=== PATIENT | female | born 1970 | race Caucasian/White ===

== ENCOUNTER 2018-01-06 13:32 | Inpatient (IN) | payer OTHER ==
[2018-01-06] MEDS ORDERED: INSULIN LISPRO 100 UNITS/ML VIAL SC SCH (13:45)
[2018-01-06] MEDS ORDERED: PIPERACILLIN SODIUM/TAZOBACTAM 3.375 GM in DEXTROSE 5 % IN WATER 100 ML IV SCH ×2 (13:45)
--- NOTE | 2018-01-06 14:17 | HP ---
Chief Complaint - Chief Complaint Date of Service: 01/06/18 Time of Service: 14:12 Chief Complaint: Pain and swelling in right medial thigh History of Present Illness: Pt. is 47yo WF, usually sees Dr. Lake, history of poorly controlled DM2 and MRSA, has had a small abscess on her right medial thigh x 4 days that worsened greatly on the day of admission, becoming enlarged, dark and necrotic appearing. She presented to our [facility], who had Dr. Denton see her, but thought this just a cellulitis and said she should be admitted for IV abx. Pt. does admit to significant pain, no F/C, has had high sugars lately, but no other sx. She usually has redundent tissue medial thighs, but this is significantly more swollen. Labs were drawn in clinic which showed elevated WBC, left shift, Hyperglycemia of 335, but most concerning was ESR of 92, the significant redness and significant smell. She was admitted for IV abx, CT to rule out possible gas gangrene/necrotizing fasciitis and to control her sugars. - Patient's Past Medical History Patient History - Medical: Diabetes Type 2, Hypothyroidism, Other - rosacea and occular MRSA Patient History - Cardiac/Respiratory: Asthma Patient History - Cancer: No Hx of Cancer Patient History - Surgical Procedures: T & A Patient History - Other: None - Family History Mother Family History - Medical: Diabetes Type 2 Family History - Cardiac/Respiratory: Coronary Heart Disease Family History - Cancer: No pertinent family hx Father Family History - Medical: , Diabetes Type 2 Family History - Cancer: Lymphoma Grandfather-Paternal Family History - Medical: , No pertinent hx Family History - Cardiac/Respiratory: No pertinent hx Family History - Cancer: Lymphoma Grandmother-Maternal Family History - Medical: , Diabetes Type 2 Family History - Cardiac/Respiratory: No pertinent hx Family History - Cancer: No pertinent family hx - Social History Abuse History: No History of abuse Psych History: No pertinent hx Does anyone smoke in the home?: No Smoking Status: Never smoker Have you smoked in the past 12 months: No Do you dip or chew tobacco: No Alcohol Use: none Drug Use: none - Immunizations Immunizations Up to Date: Yes Review Of Systems (GEN) - Review of Systems Generalized/Overall Review: Present: No Symptoms Reported. Absent: Chills, Fever, Malaise EENTM: Present: No Symptoms Reported Respiratory: Present: No Symptoms Reported Cardiac: Present: No Symptoms Reported Abdominal: Present: No Symptoms Reported Genitourinary: Present: No Symptoms Reported Musculoskeletal: Present: No Symptoms Reported Neurological: Present: Parasthesia Skin: Present: Lesions, Lumps, Other - redness, significant pain and warmth to right inner thigh. Endocrine: Present: No Symptoms Reported Allergies/Adverse Reactions: Allergies Allergy/AdvReac Type Severity Reaction Status Date / Time No Known Drug Allergies Allergy Verified 01/06/18 14:42 Home Medications: HOME MEDICATIONS Doxycycline Hyclate [Vibratab] 100 mg PO Q48H 01/06/18 [Last Taken Unknown] Glimepiride [Amaryl] 4 mg PO BID@0700,1700 01/06/18 [Last Taken Unknown] Levothyroxine Sodium [Synthroid] 254 mcg PO DAILY 01/06/18 [Last Taken Unknown] Montelukast Sodium [Singulair] 10 mg PO DAILY 01/06/18 [Last Taken Unknown] Multivitamins [Multivitamin Delon] 1 cap PO DAILY 01/06/18 [Last Taken Unknown] [place]-3S/Dha/Epa/Fish Oil [Fish Oil 1,200 mg Softgel] 1 each PO DAILY 01/06/18 [ Last Taken Unknown] metFORMIN HCL [Metformin HCl ER] 2,000 mg PO DAILY 01/06/18 [Last Taken Unknown] Exam - Exam Vital Signs: Temp 36.8 HR 115 BP 142/88 Pain 5/10 - 9/10 when moving. RR 18 97% RA Constitutional: Present: Alert, Oriented x3, Cooperative, Mild distress, Moderate distress, Overweight ENT Exam: Present: hearing grossly normal Eye Exam: bilateral eye: normal inspection, PERRL, EOMI Extremity: Present: other - significant swelling, tumor (10cm area - firm, non- fluctuant), calor, rubor and dolor of the right medial posterior thigh with 4cm dark necrotic area. Pt. winces in pain when being touched. No purulent drainage, but does bleed. Neurologic: Present: normal mood/affect, oriented x 3 Appearance: Present: appropriate appearance, appropriate insight, neat Eye contact: Present: cooperative, good eye contact, normal speech Thoughts: Present: normal thought pattern, no apparent hallucination Assessment/Plan - Assessment/Plan (1) Cellulitis and abscess of right leg Assessment: concern for possible significant infection - early nec or gas gangrene so will do CT with contrast of leg. Dr. Denton has already seen her, so will keep her NPO until results are back in case she may need to go to surgery. Cultures of wound and blood have been done and IV vanc and zosyn have been ordered stat. Problem: Acute (2) Diabetes Assessment: sugars currently running high. will hold metformin due to IV contrast for CT. will do consistent carb diet when taking po and SSI - moderate dose. accuchecks achs. Problem: Chronic Qualifiers: Diabetes mellitus type: type 2 Diabetes mellitus complication status: without complication Diabetes mellitus usp insulin use: without usp use Qualified Code(s): E11.9 - Type 2 diabetes mellitus without complications (3) Hyperglycemia due to type 2 diabetes mellitus Assessment: will do SSI for now. Problem: Acute Qualifiers: Diabetes mellitus usp insulin use: without usp use Qualified Code(s): E11.65 - Type 2 diabetes mellitus with hyperglycemia (4) History of MRSA infection Assessment: contact precautions. start vanco awaiting cultures. retest nares for MRSA. Problem: Chronic (5) Discharge planning issues Assessment: anticipate pt. being her a minimum of 2 midnights while we await cultures and response to abx. If surgery needed this could extend into several days to a week. Problem: Acute
[2018-01-06] MEDS: ENOXAPARIN SODIUM 40 MG/0.4 ML SYRG SC SCH (15:57)
[2018-01-06] MEDS: PIPERACILLIN SODIUM/TAZOBACTAM 3.375 GM in DEXTROSE 5 % IN WATER 100 ML IV SCH ×2 (15:57)
[2018-01-06] MEDS: VANCOMYCIN HCL 1 GM in DEXTROSE 5 % IN WATER 250 ML IV SCH ×2 (15:58)
[2018-01-06] MEDS: INSULIN LISPRO 100 UNITS/ML VIAL SC SCH ×2 (17:25→21:01)
[2018-01-06] MEDS: HYDROcodone/ACETAMINOPHEN 1 EACH TABLET PO PRN (21:01)
[2018-01-07] MEDS: PIPERACILLIN SODIUM/TAZOBACTAM 3.375 GM in DEXTROSE 5 % IN WATER 100 ML IV SCH ×8 (00:23→22:11)
[2018-01-07] MEDS: HYDROcodone/ACETAMINOPHEN 1 EACH TABLET PO PRN ×3 (02:34→16:15)
[2018-01-07] MEDS: VANCOMYCIN HCL 1 GM in DEXTROSE 5 % IN WATER 250 ML IV SCH ×4 (02:36→14:26)
--- NOTE | 2018-01-07 05:33 | PN ---
Subjective - Date and Time Seen Date: 01/07/18 Time: 06:10 Subjective Narrative: Pt examined this am. Denies pain on thigh except with movement. Corder is controlling the pain well. The erythema on RT thigh is slowly improving. No other acute events. Objective - Vitals Vitals: Last Vital Signs Temp 36.3 C L 01/07/18 02:49 Pulse 97 01/07/18 02:49 Resp 18 01/07/18 02:49 BP 144/62 01/07/18 02:49 Pulse Ox 99 01/07/18 02:49 - Exam Constitutional: Present: Alert, Oriented x3, Cooperative, No distress ENT Exam: Present: normal ENT inspection Neck: Present: non-tender, full range of motion, supple Breasts: Present: Exam deferred Respiratory: Present: lungs clear, No rales, No wheezing Cardiovascular/Chest: Present: normal peripheral pulses, regular rate, rhythm, no chest tenderness Abdomen: Present: Normal bowel sounds, soft, nontender, obese /Rectal: Present: Exam deferred Extremity: Present: normal range of motion. Absent: lower extremity edema Skin Exam: Present: other - Erythema on RT inner thigh. Neurologic: Present: no motor/sensory deficits, alert, oriented x 3 Appearance: Present: appropriate appearance, appropriate insight Eye contact: Present: cooperative, good eye contact, normal speech Thoughts: Present: normal thought pattern, no apparent hallucination Assessment/Plan - Problems/Diagnosis (1) Cellulitis and abscess of right leg Problem: Acute Narrative: Pt presented with abscess of RT medial thigh and significant redness and odour. CT of the RT thigh showed focal cellulitis and mass like deposition of adipose tissue, but there was no evidence of gas gangrene or fluid collection. Blood and wound culture are pending. She has hx of MRSA. Will cover with Zosyn and Vancomycin for now until culture results. Monitor CBC in am. (2) Diabetes Problem: Chronic Qualifiers: Diabetes mellitus type: type 2 Diabetes mellitus complication status: without complication Diabetes mellitus terminal gauger insulin use: without correction use Qualified Code(s): E11.9 - Type 2 diabetes mellitus without complications Narrative: Blood sugars are running high. Is on SSI. Metformin on hold due to CT scan with contrast use. May need to consider adding basal insulin. (3) Discharge planning issues Problem: Acute (4) Hyperglycemia due to type 2 diabetes mellitus Problem: Acute Qualifiers: Diabetes mellitus correction insulin use: without correction use Qualified Code(s): E11.65 - Type 2 diabetes mellitus with hyperglycemia (5) History of MRSA infection Problem: Chronic
[2018-01-07 05:44] LABS: Hematocrit 40.6 % (37.0-47.0); Hemoglobin 13.5 gm/dL (12.5-16.0); Mean Cell Volume 90.4 fl (78-100); Mean Corpuscular Hemoglobin 30.1 pg (27-31); Mean Corpuscular Hgb Conc 33.3 g/dl (32-36); Mean Platelet Volume 11.3 fl (6.0-9.5); Neutrophil % 79.4 % (42-75.0); Platelet Count 187 K/mm3 (150-450); Red Blood Count 4.49 M/mm3 (4.2-5.4)
[2018-01-07] MEDS ORDERED: LEVOTHYROXINE SODIUM 137 MCG TABLET PO SCH (07:00)
[2018-01-07] MEDS: LEVOTHYROXINE SODIUM 137 MCG TABLET PO SCH (07:30)
[2018-01-07] MEDS: INSULIN LISPRO 100 UNITS/ML VIAL SC SCH ×4 (07:31→20:44)
[2018-01-07] MEDS: MONTELUKAST SODIUM 10 MG TABLET PO SCH (08:59)
[2018-01-07] MEDS: MORPHINE SULFATE 4 MG/ML SYRG IV PRN ×2 (14:27→18:48)
[2018-01-07] MEDS: ENOXAPARIN SODIUM 40 MG/0.4 ML SYRG SC SCH (14:41)
--- NOTE | 2018-01-07 16:15 | CONS ---
[facility] - General Date of Service: 01/07/18 Narrative: This patient presented yesterday to the walk-in clinic with an infected right thigh MLL. I was asked to take a look at it over in the clinic and thought that this represented a hemorrhagic cellulitis without abscess but recommended admission for IV antibiotics, glycemic control, etc. She was admitted and started on Zosyn/Vanco. A CT confirms cellulitis without abscess or necrotizing fascitis. Today she is having ongoing pain. She denies fevers or chills. Source: patient, RN/MD, old records Exam Limitations: no limitations - History of Present Illness Allergies/Adverse Reactions: Allergies No Known Drug Allergies Allergy (Verified 01/06/18 14:42) Home Medications: Home Medications Medication Instructions Recorded Last Taken Doxycycline Hyclate [Vibratab] 100 mg PO Q48H 01/06/18 Unknown Glimepiride [Amaryl] 4 mg PO BID@0700,1700 01/06/18 Unknown Levothyroxine Sodium [Synthroid] 254 mcg PO DAILY 01/06/18 Unknown Montelukast Sodium [Singulair] 10 mg PO DAILY 01/06/18 Unknown Multivitamins [Multivitamin Delon] 1 cap PO DAILY 01/06/18 Unknown [place]-3S/Dha/Epa/Fish Oil [Fish 1 each PO DAILY 01/06/18 Unknown Oil 1,200 mg Softgel] metFORMIN HCL [Metformin HCl ER] 2,000 mg PO DAILY 01/06/18 Unknown - Patient's Past Medical History Patient History - Medical: Diabetes Type 2, Hypothyroidism, Other - rosacea and occular MRSA Patient History - Cardiac/Respiratory: Asthma Patient History - Cancer: No Hx of Cancer Patient History - Surgical Procedures: T & A Patient History - Other: None LMP (females 10-50): 1 month - Family History Mother Family History - Medical: Diabetes Type 2 Family History - Cardiac/Respiratory: Coronary Heart Disease Family History - Cancer: No pertinent family hx Father Family History - Medical: , Diabetes Type 2 Family History - Cancer: Lymphoma Grandfather-Paternal Family History - Medical: , No pertinent hx Family History - Cardiac/Respiratory: No pertinent hx Family History - Cancer: Lymphoma Grandmother-Maternal Family History - Medical: , Diabetes Type 2 Family History - Cardiac/Respiratory: No pertinent hx Family History - Cancer: No pertinent family hx - Social History Living Situations: alone Abuse History: No History of abuse Psych History: No pertinent hx Does anyone smoke in the home?: No Smoking Status: Never smoker Have you smoked in the past 12 months: No Do you dip or chew tobacco: No Patient requests Smoking Cessation Consult: No Initiate information on Smoking Cessation: No Alcohol Use: none Drug Use: none - Immunizations Immunizations Up to Date: Yes Medications - Medications Current Medications: Current Medications Acetaminophen/Hydrocodone Bitart ([place] 5-325) 1 each PO Q4H PRN PRN Reason: Moderate Pain (pain scale 4-6) Stop: 02/05/18 20:16 Last Admin: 01/07/18 10:20 Dose: 1 each Enoxaparin Sodium (Lovenox) 40 mg SC Q24H [facility] Stop: 02/05/18 15:01 Last Admin: 01/07/18 14:41 Dose: 40 mg Vancomycin HCl 1 gm/ Dextrose/ (Water) 250 mls @ 140 mls/hr IV Q12H RODRIGO PRN Reason: Protocol Stop: 02/05/18 15:01 Last Admin: 01/07/18 14:26 Dose: 140 mls/hr Piperacillin Sod/Tazobactam (Sod 3.375 gm/ Dextrose/Water) 100 mls @ 25 mls/hr IV Q8H RODRIGO PRN Reason: Protocol Stop: 02/05/18 15:01 Last Admin: 01/07/18 14:39 Dose: 25 mls/hr Insulin Human Lispro (Humalog) 0 units SC ACHSINS RODRIGO PRN Reason: Protocol Stop: 02/05/18 17:01 Last Admin: 01/07/18 11:42 Dose: 17 units Levothyroxine Sodium (Synthroid) 274 mcg PO QDAC [facility] Stop: 02/06/18 07:31 Last Admin: 01/07/18 07:30 Dose: 274 mcg Montelukast Sodium (Singulair) 10 mg PO DAILY [facility] Stop: 02/06/18 09:01 Last Admin: 01/07/18 08:59 Dose: 10 mg Morphine Sulfate (Morphine Sulfate) 2 mg IV Q4H PRN PRN Reason: Severe Pain (pain scale 7-10) Stop: 02/05/18 13:54 Last Admin: 01/07/18 14:27 Dose: 2 mg Physical Examination - Exam Narrative: She has a large pedunculated mass of the upper inner right thigh with peau d' orange consistent with MLL (massive localized lymphedema). It is involed with cellulitis that has improved from yesterday. There is hemorrhagic skin 8x8cm with some surround scalded skin syndrome. It is draining hemorrhagic serous fluid. Vital Signs: Vital Signs - Last Taken Temp 37 C 01/07/18 14:00 Pulse 91 01/07/18 14:00 Resp 18 01/07/18 14:00 BP 127/66 01/07/18 14:00 Pulse Ox 95 01/07/18 14:00 O2 Oxygen Delivery Method Room Air - Results and Findings: Lab/Microbiology results last 24 hrs: Abnormal/Pending Laboratory Last 24 HRS 01/07/18 01/07/18 05:40 05:40 MPV 11.3 H Neutrophils % 79.4 H Lymphocytes % 7.8 L Eosinophils % 4.8 H Neutrophils # 8.0 H Lymphocytes # 0.8 L ESR 89 H Culture 01/06/18 14:14 Blood Culture - Preliminary Blood NO GROWTH 24 HOURS 01/06/18 14:15 Wound Culture - Preliminary Thigh - Right Ruling Out Pathogen 01/06/18 Unknown - Final Nares MRSA Negative - Assessments/Findings (1) MLL (Massive Localized Lymphedema) Diagnosis(s): This polypoid mass has become secondarily infected. Undoubtedly began as an erysipelas as is so common in chronic lymphedema. The infection appears to be responding nicely. No surgical intervention indicated at this point. At some point down the road she may want to consider excision of this mass as these are known to degenerate into angiosarcomas. She states that this mass currently does not interfere with her gait. Problem: Acute
[2018-01-08] MEDS: MORPHINE SULFATE 4 MG/ML SYRG IV PRN ×3 (00:56→11:28)
[2018-01-08] MEDS: VANCOMYCIN HCL 1 GM in DEXTROSE 5 % IN WATER 250 ML IV SCH ×4 (02:24→15:09)
[2018-01-08] MEDS: ONDANSETRON HCL/PF 2 MG/ML VIAL IV PRN (02:44)
--- NOTE | 2018-01-08 05:17 | PN ---
Subjective - Date and Time Seen Date: 01/08/18 Time: 06:04 Subjective Narrative: Pt seen this am. Got nauseated over the night and Zofran provided relief. She thinks it's due to acid reflux from spicy dinner.The redness on RT thigh improving but is draining more. No other acute events overnight. Objective - Vitals Vitals: Last Vital Signs Temp 36.5 C 01/08/18 02:23 Pulse 88 01/08/18 02:23 Resp 20 01/08/18 02:23 BP 143/71 01/08/18 02:23 Pulse Ox 95 01/08/18 02:23 - Abnormal Lab Findings Abnormal Lab Findings: Abnormal Lab Results 01/07/18 01/07/18 Range/Units 05:40 05:40 MPV 11.3 H (6.0-9.5) fl Neutrophils % 79.4 H (42-75.0) % Lymphocytes % 7.8 L (20-51) % Eosinophils % 4.8 H (0.0-3.0) % Neutrophils # 8.0 H (1.3-6.0) K/mm3 Lymphocytes # 0.8 L (1.5-3.5) k/mm3 ESR 89 H (0-15) mm/hr - Exam Constitutional: Present: Alert, Oriented x3, Cooperative, No distress ENT Exam: Present: normal ENT inspection Neck: Present: non-tender, full range of motion, supple Breasts: Present: Exam deferred Respiratory: Present: chest non-tender, lungs clear Cardiovascular/Chest: Present: normal peripheral pulses, regular rate, rhythm, no chest tenderness Abdomen: Present: Normal bowel sounds, soft, nontender, obese /Rectal: Present: Exam deferred Extremity: Present: normal range of motion, non-tender, normal inspection Skin Exam: Present: other - RT inner thigh Neurologic: Present: no motor/sensory deficits, alert, normal mood/affect Appearance: Present: appropriate appearance, appropriate insight Eye contact: Present: cooperative, good eye contact, normal speech Thoughts: Present: normal thought pattern, no apparent hallucination Assessment/Plan - Problems/Diagnosis (1) Cellulitis and abscess of right leg Problem: Acute Narrative: Pt presented with abscess of RT medial thigh and significant redness and odour. CT of the RT thigh showed focal cellulitis and mass like deposition of adipose tissue, but there was no evidence of gas gangrene or fluid collection. Blood and wound culture are pending. She has hx of MRSA. Will cover with Zosyn and Vancomycin for now until culture results. Monitor CBC in am. (2) MLL (Massive Localized Lymphedema) Problem: Acute Narrative: Seen and evaluated by Dr. Junior for MLL. He does not believe surgical intervention is necessary at this time, but could need excision of the mass at a later time due to the angiosarcoma that can be the result. Will continue with Ax as planned. (3) Diabetes Problem: Chronic Qualifiers: Diabetes mellitus type: type 2 Diabetes mellitus complication status: without complication Diabetes mellitus nursing home insulin use: without nursing home use Qualified Code(s): E11.9 - Type 2 diabetes mellitus without complications Narrative: Blood sugars are running high. Is on SSI. Metformin on hold due to CT scan with contrast use. May need to consider adding basal insulin. (4) Discharge planning issues Problem: Acute (5) Hyperglycemia due to type 2 diabetes mellitus Problem: Acute Qualifiers: Diabetes mellitus psychologist engineering insulin use: without nursing home use Qualified Code(s): E11.65 - Type 2 diabetes mellitus with hyperglycemia (6) History of MRSA infection Problem: Chronic
[2018-01-08] MEDS: INSULIN GLARGINE,HUM.REC.ANLOG 100 UNITS/ML VIAL SC SCH ×2 (06:18→08:51)
[2018-01-08] MEDS: LEVOTHYROXINE SODIUM 137 MCG TABLET PO SCH (06:46)
[2018-01-08] MEDS: PIPERACILLIN SODIUM/TAZOBACTAM 3.375 GM in DEXTROSE 5 % IN WATER 100 ML IV SCH ×6 (06:47→23:34)
[2018-01-08] MEDS: INSULIN LISPRO 100 UNITS/ML VIAL SC SCH ×4 (06:52→22:25)
[2018-01-08] MEDS: FAMOTIDINE 20 MG TABLET PO SCH ×2 (08:43→22:27)
[2018-01-08] MEDS: MONTELUKAST SODIUM 10 MG TABLET PO SCH (08:43)
[2018-01-08] MEDS ORDERED: INSULIN GLARGINE,HUM.REC.ANLOG 100 UNITS/ML VIAL SC SCH (09:00)
[2018-01-08] MEDS ORDERED: VANCOMYCIN HCL LEVEL XX ONE (14:30)
[2018-01-08] MEDS: HYDROcodone/ACETAMINOPHEN 1 EACH TABLET PO PRN ×3 (15:09→23:44)
[2018-01-08] MEDS: ENOXAPARIN SODIUM 40 MG/0.4 ML SYRG SC SCH (15:10)
--- NOTE | 2018-01-08 17:04 | PN ---
Subjective - Date and Time Seen Date: 01/08/18 Time: 16:59 Subjective Narrative: FU Infected MLL right thigh No new c/o Objective - Vitals Vitals: Last Vital Signs Temp 36.4 C L 01/08/18 14:37 Pulse 94 01/08/18 14:37 Resp 16 01/08/18 14:37 BP 155/69 01/08/18 14:37 Pulse Ox 93 01/08/18 14:37 - Abnormal Lab Findings Abnormal Lab Findings: Abnormal Lab Results 01/08/18 Range/Units 14:27 Vancomycin Trough 7.3 L (10.0-20.0) mcg/mL - Exam Exam Narrative: Erythema is stable. Area of hemorrhagic infection looks a little bit better. This tissue may still be viable. Ongoing serosanguinous drainage. Growing strep from wound. Assessment/Plan - Problems/Diagnosis (1) MLL (Massive Localized Lymphedema) Problem: Acute Narrative: Appears stable. Agree with choices of PO Abx. No debridement indicated right now.
[2018-01-08 20:33] LABS: BUN/Creatinine Ratio 10.8 (9.0-21.6)
[2018-01-09] MEDS ORDERED: VANCOMYCIN HCL 1.25 GM in DEXTROSE 5 % IN WATER 250 ML IV SCH ×2 (03:02)
[2018-01-09] MEDS: HYDROcodone/ACETAMINOPHEN 1 EACH TABLET PO PRN ×4 (03:46→18:43)
[2018-01-09 05:45] LABS: Hematocrit 40.1 % (37.0-47.0); Hemoglobin 13.3 gm/dL (12.5-16.0); Mean Cell Volume 91.6 fl (78-100); Mean Corpuscular Hemoglobin 30.4 pg (27-31); Mean Corpuscular Hgb Conc 33.2 g/dl (32-36); Mean Platelet Volume 11.3 fl (6.0-9.5); Neutrophil # 4.7 K/mm3 (1.3-6.0); Neutrophil % 59.3 % (42-75.0); Platelet Count 192 K/mm3 (150-450); Red Blood Count 4.38 M/mm3 (4.2-5.4)
[2018-01-09] MEDS: PIPERACILLIN SODIUM/TAZOBACTAM 3.375 GM in DEXTROSE 5 % IN WATER 100 ML IV SCH ×2 (06:47)
[2018-01-09] MEDS: LEVOTHYROXINE SODIUM 137 MCG TABLET PO SCH (06:47)
[2018-01-09] MEDS: INSULIN LISPRO 100 UNITS/ML VIAL SC SCH ×4 (06:48→20:47)
[2018-01-09] MEDS: ONDANSETRON HCL/PF 2 MG/ML VIAL IV PRN ×2 (07:58→13:23)
--- NOTE | 2018-01-09 08:00 | PN ---
Subjective - Date and Time Seen Date: 01/09/18 Time: 07:54 Subjective Narrative: Pt. states the pain is slightly worse this am as she rolled over in bed last night and seemed to "squeeze" the area. otherwise she has no complaints. Objective - Review of Systems Generalized/Overall Review: Reports: No Symptoms Reported EENTM: Reports: No Symptoms Reported Respiratory: Reports: No Symptoms Reported Cardiac: Reports: No Symptoms Reported Abdominal: Reports: No Symptoms Reported Genitourinary Symptoms: Reports: No Symptoms Reported Musculoskeletal Complaints: Reports: No Symptoms Reported Neurological: Reports: No Symptoms Reported Skin: Reports: Lumps, Other - pain around infection. continues to drain bloody discharge. Endocrine: Reports: No Symptoms Reported - Vitals Vitals: Last Vital Signs Temp 36.4 C L 01/09/18 07:44 Pulse 87 01/09/18 07:44 Resp 16 01/09/18 07:44 BP 149/75 01/09/18 07:44 Pulse Ox 96 01/09/18 07:44 - Abnormal Lab Findings Abnormal Lab Findings: Abnormal Lab Results 01/08/18 01/09/18 01/09/18 Range/Units 14:27 05:40 05:40 MPV 11.3 H (6.0-9.5) fl Monocytes % 12.6 H (0.0-9) % Eosinophils % 4.5 H (0.0-3.0) % C-Reactive Prot, Quant 22.0 H (0.0-0.9) mg/dL Vancomycin Trough 7.3 L (10.0-20.0) mcg/mL - Exam Constitutional: Present: Alert, Oriented x3, Cooperative, Morbidly obese ENT Exam: Present: hearing grossly normal Neck: Present: supple Respiratory: Present: no respiratory distress Skin Exam: Present: other - erythema looks expanded beyond the demarkation, still with a great deal of warmth and tenderness to the area, with large dark hemarrhagic area posteriorly. Neurologic: Present: normal mood/affect, oriented x 3 Appearance: Present: appropriate appearance, appropriate insight, neat Eye contact: Present: cooperative, good eye contact, normal speech Thoughts: Present: normal thought pattern, no apparent hallucination Assessment/Plan - Problems/Diagnosis (1) Cellulitis and abscess of right leg Problem: Acute Narrative: culture grew out Group B strep, sensitive to levaquin so will change her over to PO levaquin and see how she does overnight. If area erythema improves, can discharge her on PO levaquin tomorrow. (2) Diabetes Problem: Chronic Qualifiers: Diabetes mellitus type: type 2 Diabetes mellitus complication status: without complication Diabetes mellitus intermodal truck driver insulin use: without skilled nursing use Qualified Code(s): E11.9 - Type 2 diabetes mellitus without complications Narrative: sugars still running high. will recheck Cr and restart her metformin to see if this helps. (3) Hyperglycemia due to type 2 diabetes mellitus Problem: Acute Qualifiers: Diabetes mellitus intermodal truck driver insulin use: without intermodal truck driver use Qualified Code(s): E11.65 - Type 2 diabetes mellitus with hyperglycemia (4) History of MRSA infection Problem: Chronic (5) Discharge planning issues Problem: Acute Narrative: hopefully can discharge home tomorrow.
[2018-01-09] MEDS: FAMOTIDINE 20 MG TABLET PO SCH ×2 (08:26→20:59)
[2018-01-09] MEDS: INSULIN GLARGINE,HUM.REC.ANLOG 100 UNITS/ML VIAL SC SCH (08:27)
[2018-01-09] MEDS: MONTELUKAST SODIUM 10 MG TABLET PO SCH (08:27)
[2018-01-09] MEDS: LEVOFLOXACIN 750 MG TABLET PO SCH (10:35)
[2018-01-09] MEDS: MORPHINE SULFATE 4 MG/ML SYRG IV PRN (11:08)
[2018-01-09] MEDS: ENOXAPARIN SODIUM 40 MG/0.4 ML SYRG SC SCH (14:25)
--- NOTE | 2018-01-09 14:31 | PN ---
Subjective - Date and Time Seen Date: 01/09/18 Time: 14:26 Subjective Narrative: FU Infected MLL right thigh Patient reports increasing drainage Objective - Vitals Vitals: Last Vital Signs Temp 36.6 C 01/09/18 11:00 Pulse 94 01/09/18 11:00 Resp 18 01/09/18 11:00 BP 152/72 01/09/18 11:00 Pulse Ox 98 01/09/18 11:00 - Abnormal Lab Findings Abnormal Lab Findings: Abnormal Lab Results 01/08/18 01/09/18 01/09/18 Range/Units 14:27 05:40 05:40 MPV 11.3 H (6.0-9.5) fl Monocytes % 12.6 H (0.0-9) % Eosinophils % 4.5 H (0.0-3.0) % C-Reactive Prot, Quant 22.0 H (0.0-0.9) mg/dL Vancomycin Trough 7.3 L (10.0-20.0) mcg/mL - Exam Exam Narrative: A portion of the hemorrhagic skin has liquified posteriorly and is no longer viable. Assessment/Plan - Problems/Diagnosis (1) MLL (Massive Localized Lymphedema) Problem: Acute Narrative: Plan debridement tomorrow under [facility]. Risks and benefits reviewed. She seems to understand, asks appropriate questions and desires to proceed.
[2018-01-10] MEDS ORDERED: ALPRAZolam 0.5 MG TABLET PO ONE (02:00)
[2018-01-10] MEDS: MORPHINE SULFATE 4 MG/ML SYRG IV PRN ×4 (07:00→20:44)
--- NOTE | 2018-01-10 07:04 | PN ---
Subjective - Date and Time Seen Date: 01/10/18 Time: 06:56 Subjective Narrative: complaint of thigh/infection site pain this am, but she was just up moving around. She is sad today due to pending surgery and anniversary date of losing her father. She has no other complaints and does not request or need anything new, per her. She did wonder about a tetanus shot as it's been since 08 that she's had one. Objective - Review of Systems Generalized/Overall Review: Reports: No Symptoms Reported EENTM: Reports: No Symptoms Reported Respiratory: Reports: No Symptoms Reported Cardiac: Reports: No Symptoms Reported Abdominal: Reports: No Symptoms Reported Genitourinary Symptoms: Reports: No Symptoms Reported Musculoskeletal Complaints: Reports: No Symptoms Reported Neurological: Reports: Depressed Skin: Reports: Lumps, Other - pain, drainage of right thigh cellulits Endocrine: Reports: No Symptoms Reported - Vitals Vitals: Last Vital Signs Temp 36.6 C 01/10/18 01:49 Pulse 91 01/10/18 01:49 Resp 18 01/10/18 01:49 BP 136/59 01/10/18 01:49 Pulse Ox 95 01/10/18 01:49 - Exam Constitutional: Present: Alert, Oriented x3, Mild distress, Obese ENT Exam: Present: hearing grossly normal Neck: Present: supple Respiratory: Present: lungs clear, normal breath sounds Cardiovascular/Chest: Present: regular rate, rhythm, no murmur Abdomen: Present: Normal bowel sounds, soft, nontender, nondistended, no hepatospenomegaly, obese Extremity: Present: no calf tenderness Skin Exam: Present: other - redness is not reduced this am. dark, hemorrhagic area is slightly larger, still draining serosanginous material. Odor is better after she showered. Neurologic: Present: normal mood/affect, oriented x 3, depressed affect Appearance: Present: appropriate appearance, appropriate insight, neat, no memory impairment Eye contact: Present: cooperative, good eye contact, normal speech, other - tearful this am, though fights crying. Thoughts: Present: normal thought pattern, no apparent hallucination Assessment/Plan - Problems/Diagnosis (1) Cellulitis and abscess of right leg Problem: Acute Narrative: just not progressing very rapidly. Plan is for debridement of the necrotic material posterior thigh by Dr. Bertin masters with the thought that this should expedite the healing process. will continue levaquin for now. (2) Diabetes Problem: Chronic Qualifiers: Diabetes mellitus type: type 2 Diabetes mellitus complication status: without complication Diabetes mellitus penitentiary insulin use: without meterman use Qualified Code(s): E11.9 - Type 2 diabetes mellitus without complications Narrative: sugars are improved. will continue diet, SSI, metformin. BP's have been slightly high, but she says she has been very stressed by all this. D/w consideration of low dose lisinopril if BP's remain high. (3) Hyperglycemia due to type 2 diabetes mellitus Problem: Acute Qualifiers: Diabetes mellitus penitentiary insulin use: without meterman use Qualified Code(s): E11.65 - Type 2 diabetes mellitus with hyperglycemia (4) History of MRSA infection Problem: Chronic Narrative: screening and wound cx are negative. (5) Discharge planning issues Problem: Acute Narrative: anticipate a protracted course, though hopefully the surgery will expedite her discharge and she can continue PO levaquin and be followed by our wound clinic outpt.
[2018-01-10] MEDS: INSULIN LISPRO 100 UNITS/ML VIAL SC SCH ×4 (07:06→21:04)
[2018-01-10] MEDS: LEVOTHYROXINE SODIUM 137 MCG TABLET PO SCH (07:07)
[2018-01-10] MEDS: FAMOTIDINE 20 MG TABLET PO SCH ×2 (09:14→21:03)
[2018-01-10] MEDS: MONTELUKAST SODIUM 10 MG TABLET PO SCH (09:14)
[2018-01-10] MEDS: INSULIN GLARGINE,HUM.REC.ANLOG 100 UNITS/ML VIAL SC SCH (09:14)
[2018-01-10] MEDS: LEVOFLOXACIN 750 MG TABLET PO SCH (11:38)
[2018-01-10] MEDS: NYSTATIN 15 APPL BTL TP SCH ×2 (12:18→17:35)
[2018-01-10] MEDS ORDERED: TETANUS AND DIPHTHERIA TOXOID 0.5 ML SYRG IM ONE (13:00)
[2018-01-10] MEDS: ENOXAPARIN SODIUM 40 MG/0.4 ML SYRG SC SCH (15:00)
[2018-01-10] MEDS ORDERED: RINGER'S SOLUTION,LACTATED 1,000 ML IV ONE (16:35)
--- NOTE | 2018-01-10 17:35 | OR ---
Operative Report - Dictated Report Narrative: Date: 01/10/2018 Preoperative diagnosis: Wet gangrene right thigh Postoperative diagnosis: Same Procedure: Debride 80 sq cm skin and subcutaneous tissue right thigh Staff surgeon: Torsten Junior MD Anesthesia: MAC EBL: < 10cc Specimens: none Description: Following the induction of conscious sedation the right thigh was prepped and draped in a sterile fashion. This patient has a massive localized lymphedema mass of the right proximal thigh that has had a superficial hemorrhagic infection that has killed off a patch of skin and subq posteriorly on this mass. This polypoid mass was retracted anteriorly and the skin was excised with scissors and pickups. The subq was debrided via curettage. Hemostasis was acquired with direct compression. A xeroform dressing was then applied with 4x4 toppers and secured with kerlix circumferentially. The patient tolerated the procedure well and was discharged from the operating room in stable condition without apparent complications.
[2018-01-10] MEDS: ONDANSETRON HCL/PF 2 MG/ML VIAL IV PRN (18:54)
[2018-01-10] MEDS: HYDROcodone/ACETAMINOPHEN 1 EACH TABLET PO PRN (22:55)
[2018-01-11] MEDS ORDERED: FLUCONAZOLE 200 MG TABLET PO ONE (01:27)
[2018-01-11] MEDS ORDERED: FLUCONAZOLE 100 MG TABLET ONE (02:11)
[2018-01-11] MEDS: HYDROcodone/ACETAMINOPHEN 1 EACH TABLET PO PRN ×4 (03:09→19:52)
[2018-01-11] MEDS: LEVOTHYROXINE SODIUM 137 MCG TABLET PO SCH (07:07)
[2018-01-11] MEDS: INSULIN LISPRO 100 UNITS/ML VIAL SC SCH ×4 (07:16→20:53)
--- NOTE | 2018-01-11 08:05 | PN ---
Subjective - Date and Time Seen Date: 01/11/18 Time: 08:00 Subjective Narrative: Pt complaining of a great deal of drainage from the wound last pm, dressing had to be changed and extra guaze placed. her pain is a little worse today, but no F/C and sugars are improving. Denies any breathing issues. Objective - Review of Systems Generalized/Overall Review: Reports: No Symptoms Reported. Denies: Chills, Fever EENTM: Reports: No Symptoms Reported Respiratory: Reports: No Symptoms Reported Cardiac: Reports: No Symptoms Reported Abdominal: Reports: No Symptoms Reported Genitourinary Symptoms: Reports: No Symptoms Reported Musculoskeletal Complaints: Reports: No Symptoms Reported Neurological: Reports: No Symptoms Reported Skin: Reports: Other - pain to area of infection and excision on the right thigh. Endocrine: Reports: No Symptoms Reported - Vitals Vitals: Last Vital Signs Temp 36.8 C 01/11/18 07:35 Pulse 86 01/11/18 07:35 Resp 16 01/11/18 07:35 BP 152/72 01/11/18 07:35 Pulse Ox 94 01/11/18 07:35 - Exam Constitutional: Present: Alert, Oriented x3, Cooperative, Mild distress, Morbidly obese ENT Exam: Present: hearing grossly normal Neck: Present: supple Respiratory: Present: lungs clear, normal breath sounds, no respiratory distress , no accessory muscle use Cardiovascular/Chest: Present: regular rate, rhythm, no murmur Abdomen: Present: Normal bowel sounds Skin Exam: Present: other - redness and warmth reduced this am from yesterday. Dressing not taken down completely but enough of the infected area was exposed to show improvement from yesterday. Neurologic: Present: normal mood/affect, oriented x 3 Appearance: Present: appropriate appearance, appropriate insight, neat Eye contact: Present: cooperative, good eye contact, normal speech Thoughts: Present: normal thought pattern, no apparent hallucination Assessment/Plan - Problems/Diagnosis (1) Cellulitis and abscess of right leg Problem: Acute Narrative: [facility] Appreciate Dr. Denton's help and the surgical debridement yesterday. This should expedite her recovery and return home. (2) Diabetes Problem: Chronic Qualifiers: Diabetes mellitus type: type 2 Diabetes mellitus complication status: without complication Diabetes mellitus middle or intermediate school principal insulin use: without middle or intermediate school principal use Qualified Code(s): E11.9 - Type 2 diabetes mellitus without complications Narrative: better, continue metformin, diet and high dose SSI. reduce the SSI to the next level down should sugars start running < 110 consistently. (3) Hyperglycemia due to type 2 diabetes mellitus Problem: Resolved Qualifiers: Diabetes mellitus intermediate insulin use: without middle or intermediate school principal use Qualified Code(s): E11.65 - Type 2 diabetes mellitus with hyperglycemia (4) History of MRSA infection Problem: Ruled-out Narrative: tested negative on both the wound and nares. (5) Discharge planning issues Problem: Acute Narrative: hopefully home in the next couple days.
[2018-01-11] MEDS: MONTELUKAST SODIUM 10 MG TABLET PO SCH (09:59)
[2018-01-11] MEDS: INSULIN GLARGINE,HUM.REC.ANLOG 100 UNITS/ML VIAL SC SCH (10:00)
[2018-01-11] MEDS: FAMOTIDINE 20 MG TABLET PO SCH ×2 (10:00→20:52)
[2018-01-11] MEDS: NYSTATIN 15 APPL BTL TP SCH ×3 (10:00→17:56)
[2018-01-11] MEDS: LEVOFLOXACIN 750 MG TABLET PO SCH (10:06)
--- NOTE | 2018-01-11 12:52 | PN ---
Subjective - Date and Time Seen Date: 01/11/18 Time: 12:51 Subjective Narrative: Feeling better today. Reports more drainage. Objective Objective Narrative: Dressing not taken down. Drainage appears to have dried up. - Vitals Vitals: Last Vital Signs Temp 36.8 C 01/11/18 11:15 Pulse 88 01/11/18 11:15 Resp 18 01/11/18 11:15 BP 146/78 01/11/18 11:15 Pulse Ox 96 01/11/18 11:15 Assessment/Plan Plan Narrative: Case d/w Dr. Ernst. Agree with plan. - Problems/Diagnosis (1) MLL (Massive Localized Lymphedema) Problem: Acute
[2018-01-11] MEDS: MORPHINE SULFATE 4 MG/ML SYRG IV PRN (13:53)
[2018-01-11] MEDS: ENOXAPARIN SODIUM 40 MG/0.4 ML SYRG SC SCH (15:16)
[2018-01-11] MEDS ORDERED: MAGNESIUM CITRATE 300 ML BTL PO ONE (15:43)
[2018-01-11] MEDS: ONDANSETRON HCL/PF 2 MG/ML VIAL IV PRN (17:56)
[2018-01-12] MEDS: HYDROcodone/ACETAMINOPHEN 1 EACH TABLET PO PRN ×5 (02:21→19:28)
[2018-01-12] MEDS: LEVOTHYROXINE SODIUM 137 MCG TABLET PO SCH (06:47)
--- NOTE | 2018-01-12 07:18 | PN ---
Subjective - Date and Time Seen Date: 01/12/18 Time: 07:15 Subjective Narrative: Pt complaining of a great deal of drainage from the wound last pm, dressing had to be changed and extra guaze placed again. her pain is a little worse this am , but was ok last night. Increased pain with movement. Denies any breathing issues. Had BM last pm after the magcitrate. Objective - Review of Systems Generalized/Overall Review: Reports: No Symptoms Reported EENTM: Reports: No Symptoms Reported Respiratory: Reports: No Symptoms Reported Cardiac: Reports: No Symptoms Reported Abdominal: Reports: Constipation. Denies: Nausea, Abdominal Pain Genitourinary Symptoms: Reports: No Symptoms Reported Musculoskeletal Complaints: Reports: No Symptoms Reported Neurological: Reports: No Symptoms Reported Skin: Reports: Other - pain in wound and infection area. Endocrine: Reports: No Symptoms Reported - Vitals Vitals: Last Vital Signs Temp 36.8 C 01/12/18 06:31 Pulse 84 01/12/18 06:31 Resp 16 01/12/18 06:31 BP 151/79 01/12/18 06:31 Pulse Ox 98 01/12/18 02:18 - Exam Constitutional: Present: Alert, Oriented x3, Cooperative, Mild distress, Morbidly obese ENT Exam: Present: hearing grossly normal Neck: Present: supple Respiratory: Present: lungs clear, normal breath sounds, no respiratory distress Cardiovascular/Chest: Present: regular rate, rhythm, no murmur Abdomen: Present: Normal bowel sounds, soft, nontender, nondistended, obese Skin Exam: Present: other - rubor and calor are greatly reduced, as well as edema in area. drainage is serosanginous. Neurologic: Present: normal mood/affect, oriented x 3 Appearance: Present: appropriate appearance, appropriate insight, neat Eye contact: Present: cooperative, good eye contact, normal speech Thoughts: Present: normal thought pattern, no apparent hallucination Assessment/Plan - Problems/Diagnosis (1) Cellulitis and abscess of right leg Problem: Acute Narrative: improving. wound care per Dr. Young (2) Diabetes Problem: Chronic Qualifiers: Diabetes mellitus type: type 2 Diabetes mellitus complication status: without complication Diabetes mellitus snf insulin use: without client technical support associate use Qualified Code(s): E11.9 - Type 2 diabetes mellitus without complications Narrative: sugars remaining high so will increase lantus, keep SSI unchanged. (3) Hyperglycemia due to type 2 diabetes mellitus Problem: Resolved Qualifiers: Diabetes mellitus client technical support associate insulin use: without client technical support associate use Qualified Code(s): E11.65 - Type 2 diabetes mellitus with hyperglycemia (4) History of MRSA infection Problem: Ruled-out (5) Discharge planning issues Problem: Acute Narrative: hopefully home tomorrow if ok with Dr. Young
[2018-01-12] MEDS: INSULIN LISPRO 100 UNITS/ML VIAL SC SCH ×4 (07:38→20:33)
[2018-01-12] MEDS: INSULIN GLARGINE,HUM.REC.ANLOG 100 UNITS/ML VIAL SC SCH (08:37)
[2018-01-12] MEDS: NYSTATIN 15 APPL BTL TP SCH ×3 (08:38→16:41)
[2018-01-12] MEDS: MONTELUKAST SODIUM 10 MG TABLET PO SCH (08:38)
[2018-01-12] MEDS: FAMOTIDINE 20 MG TABLET PO SCH ×2 (08:38→20:35)
[2018-01-12] MEDS: LEVOFLOXACIN 750 MG TABLET PO SCH (10:48)
[2018-01-12] MEDS ORDERED: MORPHINE SULFATE 2 MG/ML DISP.SYRIN IV PRN (11:45)
[2018-01-12] MEDS: ONDANSETRON HCL/PF 2 MG/ML VIAL IV PRN (12:28)
[2018-01-12] MEDS: ENOXAPARIN SODIUM 40 MG/0.4 ML SYRG SC SCH (15:03)
--- NOTE | 2018-01-12 15:40 | PN ---
Subjective - Date and Time Seen Date: 01/12/18 Time: 15:31 Subjective Narrative: FU hemorrhagic cellulitis of right thigh MLL, s/p operative debridement Pt had emesis and is having significant pain with dressing changes. She has received morphine and her nurse has taken down the dressing for me. Objective - Vitals Vitals: Last Vital Signs Temp 36.4 C L 01/12/18 15:01 Pulse 86 01/12/18 15:01 Resp 16 01/12/18 15:01 BP 137/59 01/12/18 15:01 Pulse Ox 97 01/12/18 15:01 - Exam Exam Narrative: Removal of the Xeroform was very painful for her even though it didn't appear to be sticking. After dressing removal the base of the wound is very clean and granulating nicely. There is only one 3x4mm area that may be questionably viable. Apparently there has been significant drainage but I'm not seeing that right now. The infection has cleared significantly. Assessment/Plan Plan Narrative: I spoke with a nurse at the wound clinic to try to come up with a non-stick dressing. We'll try mepital for wound contact layer, covered by AquacelAG, covered by Mepilex with border. This could be changed anywhere between every one to three days depending on how much drainage there is. She is OK for discharge tomorrow as planned. Will need a referral to wound clinic for ongoing wound care. - Problems/Diagnosis (1) MLL (Massive Localized Lymphedema) Problem: Acute
[2018-01-12] MEDS ORDERED: SENNOSIDES/DOCUSATE SODIUM 1 TAB TABLET PO SCH (21:00)
[2018-01-13] MEDS: HYDROcodone/ACETAMINOPHEN 1 EACH TABLET PO PRN ×2 (01:03→09:52)
[2018-01-13] MEDS: INSULIN LISPRO 100 UNITS/ML VIAL SC SCH ×2 (06:58→11:39)
[2018-01-13] MEDS: LEVOTHYROXINE SODIUM 137 MCG TABLET PO SCH (06:59)
[2018-01-13] MEDS ORDERED: MORPHINE SULFATE 15 MG TABLET.SA PO SCH (07:30)
[2018-01-13] MEDS: ONDANSETRON HCL/PF 2 MG/ML VIAL IV PRN (08:04)
[2018-01-13] MEDS: INSULIN GLARGINE,HUM.REC.ANLOG 100 UNITS/ML VIAL SC SCH (08:04)
[2018-01-13] MEDS: NYSTATIN 15 APPL BTL TP SCH (08:05)
[2018-01-13] MEDS: MONTELUKAST SODIUM 10 MG TABLET PO SCH (08:05)
[2018-01-13] MEDS: FAMOTIDINE 20 MG TABLET PO SCH (08:05)
[2018-01-13] MEDS: LEVOFLOXACIN 750 MG TABLET PO SCH (10:48)
[2018-01-13 11:21] VITALS: BP 137/83
--- NOTE | 2018-01-13 11:37 | DS ---
(1) Cellulitis and abscess of right leg Problem: Acute (2) Diabetes Problem: Chronic Qualifiers: Diabetes mellitus type: type 2 Diabetes mellitus complication status: without complication Diabetes mellitus senior living insulin use: without termite control servicer use Qualified Code(s): E11.9 - Type 2 diabetes mellitus without complications (3) Hyperglycemia due to type 2 diabetes mellitus Problem: Resolved Qualifiers: Diabetes mellitus senior living insulin use: without termite control servicer use Qualified Code(s): E11.65 - Type 2 diabetes mellitus with hyperglycemia (4) History of MRSA infection Problem: Ruled-out (5) Discharge planning issues Problem: Acute (6) Wet gangrene Problem: Acute Description of Stay: Pt. admitted for cellulitis and concern for gas gangrene or abscess. CT revealed extensive lymph edema area with cellulitis but no abscess or gas gangrene. She was initially placed on vanc and zosyn for broad spectrum coverage given her significant erythema and findings, ESR and CBC results and her hx of DM2 that were uncontrolled - sugars in the upper 300's and her hx of MRSA. Culture of wound came back with Group Strep B, sensitive to levaquin so was switched to this, but still had poor improvement in sx. Pt. was taken to ER due to expansion of hemorrhagic area in the middle of the cellulitis, which was dx'd with wet gangrene by surgeon, which would explain poor healing and improvement. her erythema and pain and swelling did improve greatly post-op, though she was still having a great deal of serosanginous d/c for the 2 days post op. her only significant pain was with dressing changes so was started on Ms Contin with premed of norco 15min. prior to dressing changes. She will follow in wound clinic for her wound until healed, but will finish abx and can f /u with PCP Dr. Lake for continued care. DM2: she was started on lantus 20, high dose SSI, which was then increased to 30Units of lantus daily, with high dose SSI and restarted on her metformin. Sugars were in the mid 100's range day before discharge (139 at time of discharge) Will possibly need lantus after discharge but can f/u with PCP for this. Procedures Performed: see notes below List Procedures: debridement of wet gangrene area of right thigh. See OP note for details. Discharge Disposition: Home self care Disposition: Home self-care Condition: Fair Discharge Activity: Activity as tolerated Discharge Diet: Consistent carbs Referrals: Trevor Lake MD [Non Staff Physicians] - One Week (f/u cellulitis and diabetes.) Consultation Done:: f/u with wound clinic Prescriptions (Any new or edited meds): HYDROcodone/ACETAMINOPHEN [[place] 5-325] 1 each PO Q4H PRN #60 tablet PRN Reason: Moderate Pain (Pain Scale 4-6) Levofloxacin [Levaquin] 750 mg PO DAILY@1100 #5 tablet Morphine Sulfate [Ms Contin] 15 mg PO Q12H #30 tablet.sa Nystatin [Mycostatin Powder] 1 appl TP TID #2 btl Complete Home Medications List: Complete Home Medication List: Doxycycline Hyclate [Vibratab] 100 mg PO Q48H 01/06/18 Glimepiride [Amaryl] 4 mg PO BID@0700,1700 01/06/18 Levothyroxine Sodium [Synthroid] 254 mcg PO DAILY 01/06/18 Montelukast Sodium [Singulair] 10 mg PO DAILY 01/06/18 Multivitamins [Multivitamin Delon] 1 cap PO DAILY 01/06/18 Imperial-3S/Dha/Epa/Fish Oil [Fish Oil 1,200 mg Softgel] 1 each PO DAILY 01/06/18 metFORMIN HCL [Metformin HCl ER] 2,000 mg PO DAILY 01/06/18 HYDROcodone/ACETAMINOPHEN [[place] 5-325] 1 each PO Q4H PRN #60 tablet 01/13/18 Levofloxacin [Levaquin] 750 mg PO DAILY@1100 #5 tablet 01/13/18 Morphine Sulfate [Ms Contin] 15 mg PO Q12H #30 tablet.sa 01/13/18 Nystatin [Mycostatin Powder] 1 appl TP TID #2 btl 01/13/18
--- NOTE | 2018-01-13 11:54 | PN ---
Subjective - Date and Time Seen Date: 01/13/18 Time: 11:50 Objective Objective Narrative: Had her dressing change today. Nurse describes only the mepilex border as sticking but this was enough to cause the patient significant pain. The remainder of the dressing was non-stick. - Vitals Vitals: Last Vital Signs Temp 36.8 C 01/13/18 11:20 Pulse 81 01/13/18 11:20 Resp 18 01/13/18 11:20 BP 137/83 01/13/18 11:20 Pulse Ox 93 01/13/18 11:20 - Exam Exam Narrative: Pt tearful today. Assessment/Plan Plan Narrative: OK for discharge. Recommend MWF dressing changes with the current non-stick formulation. (Mepitel , then aquacelAG, then Mepilex with border) Perhaps a stronger opioid may be in order for her dressing changes. - Problems/Diagnosis (1) MLL (Massive Localized Lymphedema) Problem: Acute
== END 2018-01-13 13:58 | disposition home or self-care (01) | DRG 264 ==
LOC: MS 13:32
PROVIDERS: ADMIT Family Medicine; ATTEND Family Medicine
PROC: 0JBL0ZZ Excision of Right Upper Leg Subcutaneous Tissue and Fascia, Open Approach (ICD-10-PCS; principal; 2018-01-10)
DX: E11.65 Type 2 diabetes mellitus with hyperglycemia; B95.1 Streptococcus, group B, as the cause of diseases classified elsewhere; E03.9 Hypothyroidism, unspecified; R12 Heartburn; I96 Gangrene, not elsewhere classified; L03.115 Cellulitis of right lower limb; Z79.84 Long term (current) use of oral hypoglycemic drugs; I89.0 Lymphedema, not elsewhere classified
CPT/HCPCS: 11042; 11045; 36415; 73701; 80202; 82565; 84520; 85025; 85652; 86140; 87040; 87070; 87077; 87081; 87186; J2405